=== PATIENT | female | born 2005 | race Caucasian/White ===

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

== ENCOUNTER 2024-01-13 11:20 | Emergency (ER) | payer MEDICAID ==
[~2024-01-13] VITALS: Ht 147.3 cm; Wt 52.7 kg
[2024-01-13 11:33] VITALS: BP 112/60; PULSE 116; RESP 18; TEMP 98.2; O2SAT 97
[2024-01-13] MEDS: NACL 0.9% 1,000 ML IV ONE (12:15)
[2024-01-13 12:18] VITALS: O2SAT 97
[2024-01-13 12:59] LABS: BASOPHILS % (AUTO) 0.2 % (0.0-2.0); EOSINOPHILS # (AUTO) 0.1 K/uL (0-0.4); EOSINOPHILS % (AUTO) 0.7 % (0.0-4.0); HEMATOCRIT 42.7 % (36-48); HEMOGLOBIN 14.6 g/dL (12.0-16.0); LYMPHOCYTES # (AUTO) 1.2 K/uL (2.5-16.5); LYMPHOCYTES % (AUTO) 13.6 % (20.5-51.1); MEAN CORPUSCULAR HEMOGLOBIN 30 pg (27-31); MEAN CORPUSCULAR HGB CONC 34 g/dL (33-37); MEAN CORPUSCULAR VOLUME 87.6 fL (80-94); MONOCYTES # (AUTO) 0.6 K/uL (0.8-1.0); MONOCYTES % (AUTO) 6.7 % (1.7-9.3); NEUTROPHILS # (AUTO) 6.8 K/uL (1.8-7.7); NEUTROPHILS % (AUTO) 78.8 % (42.2-75.2); PLATELET COUNT (AUTO) 258 K/uL (140-450); RED BLOOD CELL COUNT(AUTO) 4.88 MIL/uL (4.20-5.40); RED CELL DISTRIBUTION WIDTH 13.8 % (11.6-13.7); WHITE BLOOD COUNT (AUTO) 8.6 K/uL (4.5-11.0)
[2024-01-13] MEDS ORDERED: PRED50TA2 PO (13:07)
[2024-01-13] MEDS ORDERED: MEDR10TA PO (13:07)
== END 2024-01-13 13:34 | disposition home or self-care (01) ==
LOC: MED 11:20
DX: J02.9 Acute pharyngitis, unspecified (principal); N93.8 Other specified abnormal uterine and vaginal bleeding; Z79.899 Other long term (current) drug therapy
CPT/HCPCS: 36415; 81025; 85025; 96360; 99283; J7030